=== PATIENT | female | born 1995 | race Caucasian/White ===

== ENCOUNTER 2019-12-19 15:15 | Inpatient (IN) | payer OTHER ==
[~2019-12-19] VITALS: Ht 149.9 cm; Wt 2.7 kg
[2019-12-20] MEDS ORDERED: LEVOTHYROXINE25 MCG PO (10:25)
[2019-12-27] MEDS ORDERED: PRENATAL PLUS1 EAC1 PO (08:13)
== END 2019-12-30 13:38 | disposition home or self-care (01) | DRG 785 ==
LOC: OB/GYN 12-27 07:14 → O/R 12-27 07:14 → SURH 12-27 07:30 → OB/GYN 12-27 15:40 → SURH 12-27 21:00 → OB/GYN 12-30 13:38
PROVIDERS: ADMIT Obstetrics & Gynecology; ATTEND Obstetrics & Gynecology
PROC: 0UL70ZZ Occlusion of Bilateral Fallopian Tubes, Open Approach (ICD-10-PCS; 2019-12-27)
PROC: 4A1HXCZ Monitoring of Products of Conception, Cardiac Rate, External Approach (ICD-10-PCS; 2019-12-27)
PROC: 10D00Z1 Extraction of Products of Conception, Low, Open Approach (ICD-10-PCS; principal; 2019-12-27 21:00)
DX: O82 Encounter for cesarean delivery without indication (principal); Z3A.39 39 weeks gestation of pregnancy; Z37.0 Single live birth; Z30.2 Encounter for sterilization